=== PATIENT | female | born 1965 | race Caucasian/White ===

== ENCOUNTER 2019-12-06 16:38 | Inpatient (IN) ==
[2019-12-06] MEDS ORDERED: Isovue-370 500 ML BOTTLE IVP ONE (17:28)
[2019-12-06] MEDS ORDERED: Tdap (Boostrix) Vaccine 0.5 ML SYRINGE IM ONE (17:30)
[2019-12-06] MEDS ORDERED: *HR* FentaNYL (PF) 100 MCG/2 ML VIAL IVP ONE (17:30)
[2019-12-06 17:45] LABS: Basophils % 0.1 %; Eosinophils % 0.1 %; Hematocrit 37.7 % (35.3-44.9); Lymphocytes # 1.7 K/mcL (0.6-4.6); Mean Corpuscular HGB Conc 31.8 g/dL (31.6-35.5); Mean Corpuscular Hemoglobin 30.6 pg (28.0-33.3); Mean Corpuscular Volume 96.2 fL (83.0-100.0); Mean Platelet Volume 9.4 fL (9.4-12.4); Monocytes % 4.5 %; Neutrophils # 18.6 K/mcL (1.6-8.9); Platelet Count 289 K/mcL (140-400); Red Blood Count 3.92 M/mcL (3.82-4.97); Red Cell Distribution Width 14.6 % (11.5-14.5); Segmented Neutrophils % 86.3 %; White Blood Count 21.6 K/mcL (4.3-11.1)
[2019-12-06 18:03] LABS: Alanine Aminotransferase 21 Units/L (7-52); Albumin 3.8 g/dL (3.5-5.7); Albumin/Globulin Ratio 1.1 (1.1-2.2); Alkaline Phosphatase 95 Units/L (34-104); Aspartate Amino Transferase 21 Units/L (13-39); BUN/Creatinine Ratio 14 (6-26); Bilirubin,Total 0.2 mg/dL (0.3-1.0); Blood Urea Nitrogen 10 mg/dL (6-20); Calcium 9.2 mg/dL (8.6-10.3); Carbon Dioxide 27 mEq/L (23-29); Chloride 105 mEq/L (98-107); Globulin 3.6 g/dL (2.4-3.5); Glucose 110 mg/dL (70-105); Osmolality,Calculated 290 (280-300); Potassium 3.9 mEq/L (3.5-5.1); Sodium 140 mEq/L (136-145); Total Protein 7.4 g/dL (6.4-8.9); eGFR For African Americans > 60 (> 60); eGFR For Non-African Americans > 60 (> 60)
[2019-12-06 18:24] LABS: Activated Partial Thrombo Time 27.9 Seconds (26.0-36.0); Prothrombin Time 11.8 Seconds (9.4-12.1)
[2019-12-06] MEDS ORDERED: *HR* HYDROcodone/Acet 5/325 mg TABLET PO ONE (19:40)
[2019-12-06] MEDS ORDERED: Clindamycin 600 MG/50 ML 600 MG/50 ML IV.SOLN IVPB STA (20:01)
[2019-12-06] MEDS ORDERED: 0.9 % Sodium Chloride 1,000 ML IVC ONE (20:42)
[2019-12-06] MEDS ORDERED: Nicotine 14 MG PATCH.TD24 TD ONE (20:50)
[2019-12-06] MEDS ORDERED: Naloxone 0.4 MG/ML INJ IVP PRN (22:01)
[2019-12-06] MEDS ORDERED: *HR* Promethazine 25 MG/ML VIAL IVP PRN (22:01)
[2019-12-07] MEDS: 0.9 % Sodium Chloride 1,000 ML IVC SCH ×2 (00:11→17:39)
[2019-12-07] MEDS: Clindamycin 600 MG/50 ML 600 MG/50 ML IV.SOLN IVPB SCH ×2 (00:12→08:06)
[2019-12-07] MEDS: *HR* Heparin 5,000 UNIT/ML VIAL SQ SCH ×4 (00:12→21:23)
[2019-12-07] MEDS: Gabapentin 400 MG CAPSULE PO SCH ×5 (00:17→21:32)
[2019-12-07] MEDS: *HR* OxyCODONE/APAP 5/325 TABLET PO PRN ×4 (00:20→18:43)
[2019-12-07] MEDS: Acetaminophen 325 MG TABLET PO PRN (03:51)
[2019-12-07 05:02] LABS: INR 1.1; Prothrombin Time 12.2 Seconds (9.4-12.1)
[2019-12-07 05:04] LABS: Estimated Average Glucose 134 mg/dl
[2019-12-07 05:05] LABS: Basophils # 0.1 K/mcL (0.0-0.2); Basophils % 0.3 %; Eosinophils # 0.1 K/mcL (0.0-0.6); Eosinophils % 0.5 %; Hematocrit 36.7 % (35.3-44.9); Hemoglobin 11.4 g/dL (11.5-15.4); Immature Granulocytes % 0.5 % (0-4); Lymphocytes # 2.8 K/mcL (0.6-4.6); Lymphocytes % 19.6 %; Mean Corpuscular HGB Conc 31.1 g/dL (31.6-35.5); Mean Corpuscular Hemoglobin 30.5 pg (28.0-33.3); Mean Corpuscular Volume 98.1 fL (83.0-100.0); Mean Platelet Volume 9.5 fL (9.4-12.4); Monocytes # 0.8 K/mcL (0.0-1.3); Monocytes % 5.7 %; Neutrophils # 10.6 K/mcL (1.6-8.9); Platelet Count 240 K/mcL (140-400); Red Blood Count 3.74 M/mcL (3.82-4.97); Red Cell Distribution Width 14.9 % (11.5-14.5); Segmented Neutrophils % 73.4 %; White Blood Count 14.5 K/mcL (4.3-11.1)
[2019-12-07 05:25] LABS: BUN/Creatinine Ratio 11 (6-26); Blood Urea Nitrogen 8 mg/dL (6-20); C-Reactive Protein 152 mg/L (Less than 10); Calcium 8.8 mg/dL (8.6-10.3); Carbon Dioxide 29 mEq/L (23-29); Chloride 106 mEq/L (98-107); Glucose 89 mg/dL (70-105); Magnesium 1.9 mg/dL (1.6-2.6); Osmolality,Calculated 292 (280-300); Phosphorous 3.7 mg/dL (2.7-4.5); Potassium 3.6 mEq/L (3.5-5.1); Sodium 142 mEq/L (136-145); eGFR For African Americans > 60 (> 60); eGFR For Non-African Americans > 60 (> 60)
[2019-12-07] MEDS: Acetaminophen/Butalbital/CaffeineTABLET PO SCH (08:05)
[2019-12-07] MEDS: Bumetanide 1 MG TABLET PO SCH (08:05)
[2019-12-07] MEDS: Loratadine 10 MG TABLET PO SCH (08:05)
[2019-12-07 15:19] LABS: Hepatitis C Virus Antibody Nonreactive (Nonreactive)
[2019-12-07 15:20] LABS: HIV-1&2 Antibody & p24 Ag Nonreactive (Nonreactive)
[2019-12-07] MEDS: Vancomycin 1,500 MG/265 ML IV.SOLN IVPB SCH (15:33)
[2019-12-07] MEDS: Piperacillin/Tazobactam 3.375 GM in 0.9 % Sodium Chloride Mini Bag 100 ML IVPB SCH (15:33)
[2019-12-07] MEDS ORDERED: Morphine Sulfate 2 MG/ML SYRINGE IVP ONE (15:53)
[2019-12-07] MEDS: Nicotine 21 MG PATCH.TD24 TD SCH (16:14)
[2019-12-07] MEDS: Silvasorb 44.4 ML TUBE TP SCH (17:40)
[2019-12-08] MEDS: *HR* OxyCODONE/APAP 5/325 TABLET PO PRN ×3 (01:17→19:30)
[2019-12-08] MEDS: Piperacillin/Tazobactam 3.375 GM in 0.9 % Sodium Chloride Mini Bag 100 ML IVPB SCH ×4 (01:18→23:47)
[2019-12-08] MEDS: Vancomycin 1,500 MG/265 ML IV.SOLN IVPB SCH ×2 (01:19→14:46)
[2019-12-08] MEDS: *HR* Heparin 5,000 UNIT/ML VIAL SQ SCH ×3 (05:29→20:50)
[2019-12-08] MEDS: Gabapentin 400 MG CAPSULE PO SCH ×3 (09:48→20:50)
[2019-12-08] MEDS: Bumetanide 1 MG TABLET PO SCH (09:48)
[2019-12-08] MEDS: Acetaminophen/Butalbital/CaffeineTABLET PO SCH (09:48)
[2019-12-08] MEDS: Loratadine 10 MG TABLET PO SCH (09:49)
[2019-12-08] MEDS: Nicotine 21 MG PATCH.TD24 TD SCH (09:49)
[2019-12-08 10:04] LABS: Hematocrit 39.9 % (35.3-44.9); Hemoglobin 12.3 g/dL (11.5-15.4); Mean Corpuscular HGB Conc 30.8 g/dL (31.6-35.5); Mean Corpuscular Hemoglobin 29.6 pg (28.0-33.3); Mean Corpuscular Volume 95.9 fL (83.0-100.0); Mean Platelet Volume 9.3 fL (9.4-12.4); Platelet Count 285 K/mcL (140-400); Red Blood Count 4.16 M/mcL (3.82-4.97); Red Cell Distribution Width 14.9 % (11.5-14.5)
[2019-12-08 10:24] LABS: BUN/Creatinine Ratio 10 (6-26); Blood Urea Nitrogen 7 mg/dL (6-20); Calcium 9.2 mg/dL (8.6-10.3); Carbon Dioxide 29 mEq/L (23-29); Chloride 104 mEq/L (98-107); Glucose 136 mg/dL (70-105); Osmolality,Calculated 290 (280-300); Potassium 3.7 mEq/L (3.5-5.1); Sodium 140 mEq/L (136-145); eGFR For African Americans > 60 (> 60); eGFR For Non-African Americans > 60 (> 60)
[2019-12-08] MEDS: Silvasorb 44.4 ML TUBE TP SCH (13:30)
[2019-12-08] MEDS ORDERED: *HR* HYDROmorphone 2 MG TABLET PO ONE (21:52)
[2019-12-09] MEDS: Vancomycin 1,500 MG/265 ML IV.SOLN IVPB SCH ×2 (01:55→15:24)
[2019-12-09] MEDS: *HR* OxyCODONE/APAP 5/325 TABLET PO PRN ×2 (02:04→21:45)
[2019-12-09] MEDS ORDERED: *HR* HYDROmorphone 2 MG TABLET PO ONE ×2 (04:58→08:04)
[2019-12-09] MEDS: *HR* Heparin 5,000 UNIT/ML VIAL SQ SCH ×3 (05:08→21:47)
[2019-12-09 05:45] LABS: Hematocrit 40.1 % (35.3-44.9); Hemoglobin 12.3 g/dL (11.5-15.4); Mean Corpuscular HGB Conc 30.7 g/dL (31.6-35.5); Mean Corpuscular Volume 97.8 fL (83.0-100.0); Mean Platelet Volume 9.5 fL (9.4-12.4); Platelet Count 309 K/mcL (140-400); White Blood Count 15.6 K/mcL (4.3-11.1)
[2019-12-09 06:03] LABS: BUN/Creatinine Ratio 12 (6-26); Blood Urea Nitrogen 8 mg/dL (6-20); Calcium 9.2 mg/dL (8.6-10.3); Carbon Dioxide 31 mEq/L (23-29); Chloride 101 mEq/L (98-107); Glucose 119 mg/dL (70-105); Osmolality,Calculated 287 (280-300); Potassium 3.4 mEq/L (3.5-5.1); Sodium 139 mEq/L (136-145); eGFR For African Americans > 60 (> 60); eGFR For Non-African Americans > 60 (> 60)
[2019-12-09] MEDS: Bumetanide 1 MG TABLET PO SCH (07:54)
[2019-12-09] MEDS: Piperacillin/Tazobactam 3.375 GM in 0.9 % Sodium Chloride Mini Bag 100 ML IVPB SCH ×2 (07:54→15:24)
[2019-12-09] MEDS: Gabapentin 400 MG CAPSULE PO SCH ×3 (07:54→21:46)
[2019-12-09] MEDS: Loratadine 10 MG TABLET PO SCH (07:54)
[2019-12-09] MEDS: Acetaminophen/Butalbital/CaffeineTABLET PO SCH (07:54)
[2019-12-09] MEDS: Nicotine 21 MG PATCH.TD24 TD SCH (07:55)
[2019-12-09] MEDS: Silvasorb 44.4 ML TUBE TP SCH (07:55)
[2019-12-09] MEDS: *HR* HYDROmorphone 2 MG/ML SYRINGE IVP SCH (12:34)
[2019-12-09] MEDS: Acetaminophen 325 MG TABLET PO PRN (15:21)
[2019-12-09] MEDS: *HR* HYDROmorphone 2 MG TABLET PO PRN (18:46)
[2019-12-10] MEDS: Piperacillin/Tazobactam 3.375 GM in 0.9 % Sodium Chloride Mini Bag 100 ML IVPB SCH ×3 (00:03→15:45)
[2019-12-10 01:27] LABS: Hematocrit 38.8 % (35.3-44.9); Hemoglobin 11.8 g/dL (11.5-15.4); Mean Corpuscular HGB Conc 30.4 g/dL (31.6-35.5); Mean Corpuscular Hemoglobin 29.3 pg (28.0-33.3); Mean Corpuscular Volume 96.3 fL (83.0-100.0); Mean Platelet Volume 9.4 fL (9.4-12.4); Platelet Count 313 K/mcL (140-400); Red Blood Count 4.03 M/mcL (3.82-4.97); Red Cell Distribution Width 14.8 % (11.5-14.5); White Blood Count 15.3 K/mcL (4.3-11.1)
[2019-12-10 01:46] LABS: BUN/Creatinine Ratio 8 (6-26); Blood Urea Nitrogen 6 mg/dL (6-20); Calcium 8.7 mg/dL (8.6-10.3); Carbon Dioxide 26 mEq/L (23-29); Chloride 105 mEq/L (98-107); Glucose 123 mg/dL (70-105); Osmolality,Calculated 291 (280-300); Potassium 3.4 mEq/L (3.5-5.1); Sodium 141 mEq/L (136-145); eGFR For African Americans > 60 (> 60); eGFR For Non-African Americans > 60 (> 60)
[2019-12-10] MEDS: Vancomycin 1,500 MG/265 ML IV.SOLN IVPB SCH ×2 (02:48→14:40)
[2019-12-10] MEDS ORDERED: Potassium Chloride Elixir 20 MEQ/15 ML UDC PO ONE (03:10)
[2019-12-10] MEDS: *HR* HYDROmorphone 2 MG TABLET PO PRN ×3 (03:49→20:43)
[2019-12-10] MEDS: *HR* Heparin 5,000 UNIT/ML VIAL SQ SCH ×3 (06:18→20:46)
[2019-12-10] MEDS: *HR* OxyCODONE/APAP 5/325 TABLET PO PRN ×2 (06:23→18:39)
[2019-12-10] MEDS: *HR* HYDROmorphone 2 MG/ML SYRINGE IVP SCH (09:23)
[2019-12-10] MEDS: Nicotine 21 MG PATCH.TD24 TD SCH (09:27)
[2019-12-10] MEDS: Bumetanide 1 MG TABLET PO SCH (09:28)
[2019-12-10] MEDS: Acetaminophen/Butalbital/CaffeineTABLET PO SCH (09:28)
[2019-12-10] MEDS: Gabapentin 400 MG CAPSULE PO SCH ×3 (09:29→20:24)
[2019-12-10] MEDS: Silvasorb 44.4 ML TUBE TP SCH (09:29)
[2019-12-10] MEDS: Loratadine 10 MG TABLET PO SCH (09:29)
[2019-12-10] MEDS: Acetaminophen 325 MG TABLET PO PRN (16:59)
[2019-12-10] MEDS ORDERED: *HR* HYDROmorphone (PF) 1 MG/ML SYRINGE IVP ONE (21:07)
[2019-12-11] MEDS: Piperacillin/Tazobactam 3.375 GM in 0.9 % Sodium Chloride Mini Bag 100 ML IVPB SCH ×3 (00:26→17:24)
[2019-12-11] MEDS: Nicotine 21 MG PATCH.TD24 TD SCH (00:47)
[2019-12-11] MEDS: *HR* OxyCODONE/APAP 5/325 TABLET PO PRN ×2 (00:49→17:24)
[2019-12-11] MEDS: Vancomycin 1,500 MG/265 ML IV.SOLN IVPB SCH ×2 (02:49→14:55)
[2019-12-11] MEDS: *HR* HYDROmorphone 2 MG TABLET PO PRN ×2 (03:11→14:55)
[2019-12-11] MEDS: *HR* Heparin 5,000 UNIT/ML VIAL SQ SCH ×3 (04:46→22:58)
[2019-12-11] MEDS ORDERED: *HR* OxyCODONE Immed Rel 15 MG TABLET PO ONE (05:00)
[2019-12-11 05:34] LABS: Hematocrit 40.4 % (35.3-44.9); Hemoglobin 12.8 g/dL (11.5-15.4); Mean Corpuscular HGB Conc 31.7 g/dL (31.6-35.5); Mean Corpuscular Hemoglobin 30.6 pg (28.0-33.3); Mean Corpuscular Volume 96.7 fL (83.0-100.0); Mean Platelet Volume 9.2 fL (9.4-12.4); Platelet Count 289 K/mcL (140-400); Red Blood Count 4.18 M/mcL (3.82-4.97); Red Cell Distribution Width 14.9 % (11.5-14.5); White Blood Count 11.4 K/mcL (4.3-11.1)
[2019-12-11 05:53] LABS: BUN/Creatinine Ratio 17 (6-26); Blood Urea Nitrogen 11 mg/dL (6-20); Calcium 9.1 mg/dL (8.6-10.3); Carbon Dioxide 26 mEq/L (23-29); Chloride 107 mEq/L (98-107); Glucose 108 mg/dL (70-105); Osmolality,Calculated 292 (280-300); Potassium 3.6 mEq/L (3.5-5.1); Sodium 141 mEq/L (136-145); eGFR For African Americans > 60 (> 60); eGFR For Non-African Americans > 60 (> 60)
[2019-12-11] MEDS: Acetaminophen/Butalbital/CaffeineTABLET PO SCH (10:05)
[2019-12-11] MEDS: Loratadine 10 MG TABLET PO SCH (10:05)
[2019-12-11] MEDS: Gabapentin 400 MG CAPSULE PO SCH ×3 (10:05→21:13)
[2019-12-11] MEDS: Bumetanide 1 MG TABLET PO SCH (10:06)
[2019-12-11] MEDS: *HR* HYDROmorphone 2 MG/ML SYRINGE IVP SCH (10:06)
[2019-12-11] MEDS: Silvasorb 44.4 ML TUBE TP SCH (10:06)
[2019-12-11] MEDS ORDERED: *HR* HYDROmorphone (PF) 1 MG/ML SYRINGE IVP ONE (11:05)
[2019-12-11] MEDS: *HR* HYDROmorphone 2 MG/ML SYRINGE IVP PRN (21:25)
[2019-12-12] MEDS: Piperacillin/Tazobactam 3.375 GM in 0.9 % Sodium Chloride Mini Bag 100 ML IVPB SCH ×3 (00:14→16:17)
[2019-12-12] MEDS: Nicotine 21 MG PATCH.TD24 TD SCH (00:15)
[2019-12-12] MEDS ORDERED: *HR* HYDROmorphone 2 MG TABLET PO ONE (00:35)
[2019-12-12] MEDS: Vancomycin 1,500 MG/265 ML IV.SOLN IVPB SCH ×2 (01:55→14:23)
[2019-12-12] MEDS ORDERED: *HR* OxyCODONE Immed Rel 15 MG TABLET PO ONE (03:57)
[2019-12-12] MEDS: *HR* Heparin 5,000 UNIT/ML VIAL SQ SCH ×3 (05:43→19:48)
[2019-12-12] MEDS: Acetaminophen/Butalbital/CaffeineTABLET PO SCH (07:47)
[2019-12-12] MEDS: Loratadine 10 MG TABLET PO SCH (07:47)
[2019-12-12] MEDS: *HR* OxyCODONE/APAP 5/325 TABLET PO PRN ×2 (07:48→13:50)
[2019-12-12] MEDS: Gabapentin 400 MG CAPSULE PO SCH ×3 (07:48→19:48)
[2019-12-12] MEDS: Bumetanide 1 MG TABLET PO SCH (07:48)
[2019-12-12] MEDS: *HR* HYDROmorphone 2 MG/ML SYRINGE IVP PRN ×2 (09:39→21:47)
[2019-12-12] MEDS: Nystatin POWDER 30 GM BOTTLE TP SCH ×2 (09:39→19:50)
[2019-12-12] MEDS: Silvasorb 44.4 ML TUBE TP SCH (09:42)
[2019-12-12] MEDS ORDERED: *HR* OxyCODONE/APAP 10/325 TABLET PO PRN (13:58)
[2019-12-12] MEDS ORDERED: *HR* OxyCODONE/APAP 5/325 TABLET PO ONE (14:05)
[2019-12-12] MEDS ORDERED: *HR* FentaNYL (PF) 100 MCG/2 ML VIAL IVP ONE (17:55)
[2019-12-12 19:07] VITALS: BP 144/66
[2019-12-12] MEDS: *HR* OxyCODONE/APAP 10/325 TABLET PO PRN ×2 (19:48→23:20)
[2019-12-12] MEDS ORDERED: Lactobacillus 1 EACH CAP.SPRINK PO SCH (21:00)
== END 2019-12-12 23:43 | disposition short-term general hospital (02) | DRG 720 ==
LOC: 3BNU 16:38 → EMEROOARM 16:38 → SUATTDRO 20:55 → 3BNU 21:21
PROVIDERS: ADMIT Student in an Organized Health Care Education/Training Program; ATTEND Nurse Practitioner Adult Health

== ENCOUNTER 2021-07-21 16:04 | Inpatient (IN) ==
[2021-07-21] MEDS ORDERED: Naloxone 0.4 MG/ML INJ IVP PRN (19:13)
[2021-07-21] MEDS ORDERED: Melatonin 3 MG TABLET PO PRN (19:13)
[2021-07-21] MEDS ORDERED: 0.9 % Sodium Chloride 500 ML IVC ONE (19:19)
[2021-07-21] MEDS: Ringers Solution, Lactated 1,000 ML IVC SCH (20:20)
[2021-07-21] MEDS: Vancomycin 1,500 MG/265 ML IV.SOLN IVPB SCH (20:39)
[2021-07-22 05:18] LABS: Basophils # 0.1 K/mcL (0.0-0.2); Basophils % 0.3 %; Eosinophils # 0.2 K/mcL (0.0-0.6); Eosinophils % 1.2 %; Hematocrit 21.3 % (35.3-44.9); Hemoglobin 6.5 g/dL (11.5-15.4); Immature Granulocytes % 1.2 % (0-4); Lymphocytes # 1.6 K/mcL (0.6-4.6); Lymphocytes % 8.2 %; Mean Corpuscular HGB Conc 30.5 g/dL (31.6-35.5); Mean Corpuscular Hemoglobin 21.7 pg (28.0-33.3); Mean Platelet Volume 9.4 fL (9.4-12.4); Monocytes # 1.2 K/mcL (0.0-1.3); Monocytes % 6.2 %; Neutrophils # 15.8 K/mcL (1.6-8.9); Platelet Count 389 K/mcL (140-400); Red Cell Distribution Width 18.6 % (11.5-14.5); Segmented Neutrophils % 82.9 %; White Blood Count 19.1 K/mcL (4.3-11.1)
[2021-07-22 05:33] LABS: Alanine Aminotransferase 13 Units/L (7-52); Albumin/Globulin Ratio 0.6 (1.1-2.2); Alkaline Phosphatase 178 Units/L (34-104); Aspartate Amino Transferase 15 Units/L (13-39); BUN/Creatinine Ratio 17 (6-26); Bilirubin,Total 0.3 mg/dL (0.3-1.0); Blood Urea Nitrogen 13 mg/dL (6-20); Calcium 7.8 mg/dL (8.6-10.3); Carbon Dioxide 23 mEq/L (23-29); Chloride 109 mEq/L (98-107); Globulin 3.4 g/dL (2.4-3.5); Glucose 105 mg/dL (70-105); Magnesium 1.5 mg/dL (1.6-2.6); Osmolality,Calculated 286 (280-300); Phosphorous 2.8 mg/dL (2.7-4.5); Potassium 3.4 mEq/L (3.5-5.1); Sodium 138 mEq/L (136-145); Total Protein 5.4 g/dL (6.4-8.9); eGFR For African Americans > 60 (> 60); eGFR For Non-African Americans > 60 (> 60)
[2021-07-22] MEDS: Ringers Solution, Lactated 1,000 ML IVC SCH (05:38)
[2021-07-22 05:46] LABS: Iron < 10 mcg/dL (50-170); Transferrin 120 mg/dL (203-362)
[2021-07-22 05:58] LABS: Ferritin 107 ng/mL (10-120)
[2021-07-22] MEDS ORDERED: 0.9 % Sodium Chloride 250 ML ONE ×2 (07:48→23:20)
[2021-07-22] MEDS: Piperacillin/Tazobactam 3.375 GM in 0.9 % Sodium Chloride Mini Bag 100 ML IVPB SCH ×3 (09:18→23:28)
[2021-07-22] MEDS: *HR* HYDROmorphone (PF) 1 MG/ML SYRINGE IVP PRN ×3 (14:46→23:26)
[2021-07-22] MEDS: Nicotine 21 MG PATCH.TD24 TD SCH (14:47)
[2021-07-22] MEDS ORDERED: Piperacillin/Tazobactam 3.375 GM in 0.9 % Sodium Chloride Mini Bag 100 ML IVPB SCH (19:20)
[2021-07-22] MEDS: Vancomycin 1,500 MG/265 ML IV.SOLN IVPB SCH (20:19)
[2021-07-22] MEDS ORDERED: Nicotine 21 MG PATCH.TD24 TD SCH (21:15)
[2021-07-22] MEDS ORDERED: hydrOXYzine pamoate 25 MG CAPSULE PO ONE (22:13)
[2021-07-23] MEDS: *HR* HYDROmorphone (PF) 1 MG/ML SYRINGE IVP PRN ×4 (04:00→20:56)
[2021-07-23 04:58] LABS: Basophils # 0.1 K/mcL (0.0-0.2); Basophils % 0.4 %; Eosinophils # 0.2 K/mcL (0.0-0.6); Eosinophils % 1.4 %; Hematocrit 23.4 % (35.3-44.9); Hemoglobin 7.2 g/dL (11.5-15.4); Immature Granulocytes % 1.7 % (0-4); Lymphocytes # 1.6 K/mcL (0.6-4.6); Lymphocytes % 11.6 %; Mean Corpuscular HGB Conc 30.8 g/dL (31.6-35.5); Mean Corpuscular Hemoglobin 22.3 pg (28.0-33.3); Mean Corpuscular Volume 72.4 fL (83.0-100.0); Monocytes # 0.9 K/mcL (0.0-1.3); Monocytes % 6.6 %; Neutrophils # 10.9 K/mcL (1.6-8.9); Platelet Count 375 K/mcL (140-400); Red Blood Count 3.23 M/mcL (3.82-4.97); Red Cell Distribution Width 19.4 % (11.5-14.5); Segmented Neutrophils % 78.3 %; White Blood Count 13.9 K/mcL (4.3-11.1)
[2021-07-23 05:13] LABS: BUN/Creatinine Ratio 20 (6-26); Blood Urea Nitrogen 13 mg/dL (6-20); Calcium 7.9 mg/dL (8.6-10.3); Carbon Dioxide 24 mEq/L (23-29); Chloride 107 mEq/L (98-107); Glucose 79 mg/dL (70-105); Osmolality,Calculated 287 (280-300); Potassium 3.8 mEq/L (3.5-5.1); Sodium 139 mEq/L (136-145); eGFR For African Americans > 60 (> 60); eGFR For Non-African Americans > 60 (> 60)
[2021-07-23] MEDS: Piperacillin/Tazobactam 3.375 GM in 0.9 % Sodium Chloride Mini Bag 100 ML IVPB SCH ×2 (09:30→18:02)
[2021-07-23] MEDS: Nicotine 21 MG PATCH.TD24 TD SCH (13:54)
[2021-07-23] MEDS: Gabapentin 400 MG CAPSULE PO SCH ×2 (18:02→20:57)
[2021-07-23] MEDS: Vancomycin 1,500 MG/265 ML IV.SOLN IVPB SCH (20:57)
[2021-07-24] MEDS: Piperacillin/Tazobactam 3.375 GM in 0.9 % Sodium Chloride Mini Bag 100 ML IVPB SCH ×3 (00:03→17:25)
[2021-07-24] MEDS: *HR* HYDROmorphone (PF) 1 MG/ML SYRINGE IVP PRN ×5 (03:45→23:01)
[2021-07-24] MEDS: *HR* Enoxaparin 40 MG/0.4 ML SYRINGE SQ SCH (05:05)
[2021-07-24] MEDS: Vancomycin 1,500 MG/265 ML IV.SOLN IVPB SCH ×2 (08:43→20:38)
[2021-07-24] MEDS: Multivit/Ca/Min/Fe/FA 1 TAB TABLET PO SCH (08:44)
[2021-07-24] MEDS: Gabapentin 400 MG CAPSULE PO SCH ×4 (08:44→20:38)
[2021-07-24 09:43] LABS: Basophils # 0.1 K/mcL (0.0-0.2); Basophils % 0.4 %; Eosinophils # 0.2 K/mcL (0.0-0.6); Eosinophils % 1.4 %; Hematocrit 26.5 % (35.3-44.9); Immature Granulocytes % 2.1 % (0-4); Lymphocytes # 1.6 K/mcL (0.6-4.6); Lymphocytes % 9.3 %; Mean Corpuscular HGB Conc 30.2 g/dL (31.6-35.5); Mean Corpuscular Hemoglobin 21.9 pg (28.0-33.3); Mean Corpuscular Volume 72.6 fL (83.0-100.0); Mean Platelet Volume 9.1 fL (9.4-12.4); Monocytes # 1.1 K/mcL (0.0-1.3); Monocytes % 6.3 %; Neutrophils # 13.5 K/mcL (1.6-8.9); Platelet Count 407 K/mcL (140-400); Red Blood Count 3.65 M/mcL (3.82-4.97); Red Cell Distribution Width 19.4 % (11.5-14.5); Segmented Neutrophils % 80.5 %; White Blood Count 16.8 K/mcL (4.3-11.1)
[2021-07-24] MEDS: Nicotine 21 MG PATCH.TD24 TD SCH (13:07)
[2021-07-24] MEDS ORDERED: Morphine Sulfate 2 MG/ML SYRINGE IVP PRN (14:52)
[2021-07-24] MEDS: Nystatin SUSP 5 ML UD.LIQ PO SCH ×2 (19:00→20:49)
[2021-07-25] MEDS: Piperacillin/Tazobactam 3.375 GM in 0.9 % Sodium Chloride Mini Bag 100 ML IVPB SCH ×2 (02:11→07:39)
[2021-07-25] MEDS ORDERED: Acetaminophen 325 MG TABLET PO ONE (03:05)
[2021-07-25] MEDS: *HR* Enoxaparin 40 MG/0.4 ML SYRINGE SQ SCH (05:56)
[2021-07-25] MEDS: *HR* HYDROmorphone (PF) 1 MG/ML SYRINGE IVP PRN ×3 (05:56→14:49)
[2021-07-25] MEDS: Multivit/Ca/Min/Fe/FA 1 TAB TABLET PO SCH (07:39)
[2021-07-25] MEDS: Nystatin SUSP 5 ML UD.LIQ PO SCH ×2 (07:39→13:05)
[2021-07-25] MEDS: Gabapentin 400 MG CAPSULE PO SCH ×2 (07:39→13:05)
[2021-07-25] MEDS: Vancomycin 1,500 MG/265 ML IV.SOLN IVPB SCH (07:40)
[2021-07-25 11:30] VITALS: O2SAT 97
[2021-07-25] MEDS: Nicotine 21 MG PATCH.TD24 TD SCH (13:05)
[2021-07-25 14:23] VITALS: BP 161/84; PULSE 69; TEMP 100.2
== END 2021-07-25 16:00 | disposition short-term general hospital (02) | DRG 720 ==
LOC: 3ANU → SUATTDRO 18:31 → OBSVTOIN 18:31
PROVIDERS: ADMIT Internal Medicine; ATTEND Hospitalist